=== PATIENT | male | born 1965 | race Two or more races ===

== ENCOUNTER 2020-05-01 12:45 | Emergency (ER) | payer OTHER ==
[2020-05-01 12:54] VITALS: BP 121/98
[2020-05-01] MEDS ORDERED: LIDOCAINE 2% VISCOUS SOLN 15 ML UDCUP PO ONE (13:51)
[2020-05-01] MEDS ORDERED: ONDANSETRON 4 MG TAB.RAPDIS PO ONE (13:51)
[2020-05-01] MEDS ORDERED: MAG HYDROX/AL HYDROX/SIMETH SUSP 30 ML UDCUP PO ONE (13:51)
--- NOTE | 2020-05-01 13:54 | ER Document Report ---
ED Medical Screen (RME) - General Chief Complaint: Abdominal Pain Stated Complaint: UPPER ABDOMINAL PAIN Time Seen by Provider: 05/01/20 13:43 Information source: Patient Notes: Patient presents complaining of left upper quadrant abdominal pain with nausea vomiting diarrhea. Patient states he is vomited twice and had diarrhea x1 episode. Patient states he has a history of pancreatitis and was worried about this today. Patient also reports history of acid reflux. Patient denies any fever cough or cold symptoms. I have greeted and performed a rapid initial assessment of this patient. A comprehensive ED assessment and evaluation of the patient, analysis of test results and completion of the medical decision making process will be conducted by additional ED providers. - Related Data Allergies/Adverse Reactions: No Known Allergies Allergy (Unverified 05/01/20 13:42) Past Medical History - Social History Chew tobacco use (# tins/day): No Frequency of alcohol use: None Drug Abuse: None Physical Exam - Vital signs Vitals: Temp Pulse Resp BP Pulse Ox 98.4 F 109 H 18 121/98 H 100 05/01/20 12:51 05/01/20 12:51 05/01/20 12:51 05/01/20 12:51 05/01/20 12:51 - General General appearance: Alert, Anxious Notes: Obese abdomen, left upper quadrant, left side abdominal tenderness Course - Vital Signs Vital signs: Temp Pulse Resp BP Pulse Ox 98.4 F 109 H 18 121/98 H 100 05/01/20 12:51 05/01/20 12:51 05/01/20 12:51 05/01/20 12:51 05/01/20 12:51
== END 2020-05-01 15:29 | disposition left against medical advice (07) ==
LOC: ER 12:45
DX: Z53.20 Procedure and treatment not carried out because of patient's decision for unspecified reasons (principal); R10.10 Upper abdominal pain, unspecified; R10.12 Left upper quadrant pain; R11.2 Nausea with vomiting, unspecified; R19.7 Diarrhea, unspecified; E66.9 Obesity, unspecified
CPT/HCPCS: 99281